=== PATIENT | female | born 1965 | race African-American/Black ===

== ENCOUNTER 2018-06-20 18:15 | Emergency (ER) | payer OTHER ==
[2018-06-20 18:28] VITALS: BP 128/71; PULSE 86; TEMP 98; BMI 27.6
[2018-06-20] MEDS ORDERED: KETOROLAC TROMETHAMINE 60 MG/2 ML VIAL IM ONE (19:14)
--- NOTE | 2018-06-20 19:14 | PDOC ---
History of Present Illness - General Chief Complaint: Injury Stated Complaint: FALL, FINGER SWELLING Time Seen by Provider: 06/20/18 19:01 History Source: Patient Exam Limitations: No Limitations - History of Present Illness Initial Comments: CHIEF COMPLAINT: 53 y/o afebrile female c/o left thumb pain, right knee pain and low back pain after fall at work. HISTORY OF PRESENT ILLNESS: The patient states she fell over something at work , landing mostly on her left hand and right knee. She is able to walk. She denies head trauma, LOC, neck pain, n/v/d, CP, SOB, abd pain, numbness/tingling in hands/feet. Vital signs on arrival are within normal limits. REVIEW OF SYSTEMS: GENERAL/CONSTITUTIONAL: No fever/chills. No weakness. No weight change. MUSCULOSKELETAL: +left thumb swelling and pain. +low back pain. +right knee pain. No neck pain. SKIN: No rash or easy bruising. NEUROLOGIC: No headache, vertigo, loss of consciousness, or loss of sensation. PHYSICAL EXAM: VITAL_SIGNS: within normal limits GENERAL_APPEARANCE: alert, cooperative, mild obvious discomfort with ambulation. Patient is ambulatory but with slight limp. MENTAL_STATUS: speech clear, oriented X 3, responds appropriately to questions. NEURO: motor intact and sensory intact in injured extremity. BACK: No midline lumbar spine TTP or step offs. Reproducible pain with palpation of b/l lumbar paravertebral muscles, worse on left side. EXTREMITIES: Swelling and ecchymosis to left thumb without obvious deformity. Minimal swelling to right knee. Full flexion and extension of right knee. SKIN: warm, dry, good color. Past History - Past Medical History Allergies/Adverse Reactions: Allergies Allergy/AdvReac Type Severity Reaction Status Date / Time No Known Allergies Allergy Verified 06/20/18 18:24 Home Medications: Ambulatory Orders Albuterol Sulfate Inhaler - [Ventolin HFA Inhaler -] 1 - 2 inh PO Q4H #1 inhaler 05/25/18 Darunavir Ethanolate [Prezista -] 800 mg PO DAILY #30 tablet 05/25/18 Dolutegravir Sodium [Tivicay] 1 tab PO DAILY #30 tablet 05/25/18 Fluticasone/Salmeterol [Advair 250-50 Diskus] 1 puff PO BID #1 blst.w.dev Multivit-Min/Iron Fum/Folic AC [Pvaar-Aehnfad-Hsfomdgr Tablet] 1 each PO DAILY # 30 tablet 05/25/18 Ritonavir [Norvir -] 1 tab PO DAILY #30 tab 05/25/18 Zidovudine [Retrovir -] 1 tab PO BID #60 tablet 05/25/18 Albuterol 0.083% Nebulizer Carmencita [Ventolin 0.083% Nebulizer Soln -] 1 amp NEB PRN #30 amp 06/19/18 Ibuprofen 600 mg PO Q6H #20 tablet 06/20/18 Anemia: No Asthma: Yes Cancer: No Cardiac Disorders: No CVA: No COPD: No CHF: No Dementia: No Diabetes: No GI Disorders: No Disorders: No HTN: No Hypercholesterolemia: No Liver Disease: No Seizures: No Thyroid Disease: No - Surgical History Abdominal Surgery: No Appendectomy: No Cardiac Surgery: No Cholecystectomy: No Lung Surgery: No Neurologic Surgery: No Orthopedic Surgery: No - Immunization History Immunization Up to Date: Yes (unknown) - Suicide/Smoking/Psychosocial Hx Smoking History: Current every day smoker Have you smoked in the past 12 months: Yes Number of Cigarettes Smoked Daily: 15 If you are a former smoker, when did you quit?: 1 week smoke free Cigars Per Day: 0 Information on smoking cessation initiated: No Hx Alcohol Use: Yes Drug/Substance Use Hx: Yes Substance Use Type: Alcohol, Cocaine Hx Substance Use Treatment: Yes (completed 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 Plan is as follows: 1. left hand xray 2. Right knee xray 3. IM toradol Left hand xray IMPRESSION (wet read): No acute pathology. Right knee xray IMPRESSION (wet read): No acute pathology. Will put SARY bandage on patient's knee and thumb. Suggested rice instructions and Ibuprofen every 6 hours. Instructed her to f/u with Dr. Demarco within 1 week if no improvement. The patient verbalizes understanding of all instructions, has no further questions and is awaiting discharge. *DC/Admit/Observation/Transfer Diagnosis at time of Disposition: Left thumb sprain Qualifiers: Encounter type: initial encounter Sprain of finger site: unspecified site Qualified Code(s): S63.602A - Unspecified sprain of left thumb, initial encounter Knee pain, right Qualifiers: Chronicity: acute Qualified Code(s): M25.561 - Pain in right knee Low back pain Qualifiers: Chronicity: acute Back pain laterality: bilateral Sciatica presence: with sciatica Sciatica laterality: sciatica of right side Qualified Code(s): M54.41 - Lumbago with sciatica, right side - Discharge Dispostion Disposition: HOME Condition at time of disposition: Good - Referrals Referrals: Nancy Renee NP [Primary Care Provider] - Umer Demarco MD [Staff Physician] - - Patient Instructions Printed Discharge Instructions: How To Perform RICE (Rest, Ice, Compress, Elevate), DI for Ulnar Collateral Ligament Sprain of Thumb, DI for Knee Pain, DI for Low Back Pain Additional Instructions: Discharge INstructions: -Your xrays were normal -Please use SARY bandages for comfort -Alternate ice and heat to affected areas. -Take 600mg of ibuprofen with food every 6 hours for pain/swelling -Follow up with Dr. Demarco in 1 week if no improvement - Post Discharge Activity Forms/Work/School Notes: Back to Work
[2018-06-20] MEDS ORDERED: KETOROLAC TROMETHAMINE 60 MG/2 ML VIAL ONE (19:21)
== END 2018-06-20 20:29 | disposition home or self-care (01) ==
LOC: JERFT 18:15
PROC: 3E0233Z Introduction of Anti-inflammatory into Muscle, Percutaneous Approach (ICD-10-PCS; principal; 2018-06-20)
DX: S63.602A Unspecified sprain of left thumb, initial encounter (principal); M54.41 Lumbago with sciatica, right side; M25.561 Pain in right knee; W19.XXXA Unspecified fall, initial encounter; Y93.89 Activity, other specified; Y92.89 Other specified places as the place of occurrence of the external cause; Y99.0 Civilian activity done for income or pay
CPT/HCPCS: 73110-TC-LR-FY; 73130-TC-LR-FY; 73560-TC-RT-FY; 96372; 99281-25

== ENCOUNTER 2021-04-27 11:35 | Emergency (ER) | payer OTHER ==
[2021-04-27 11:49] VITALS: TEMP 98.8; BMI 26.0
[2021-04-27] MEDS ORDERED: ALBUTEROL SO4 2.5/IPRATROPIUM 0.5 INH SOL 3 ML VIAL.NEB. NEB ONE ×2 (12:01→12:02)
[2021-04-27] MEDS ORDERED: predniSONE 20 MG TABLET (UD) PO ONE (12:44)
[2021-04-27] MEDS ORDERED: predniSONE 20 MG TABLET (UD) ONE (12:48)
[2021-04-27 13:02] VITALS: BP 110/70; PULSE 77
== END 2021-04-27 13:34 | disposition home or self-care (01) ==
LOC: FER 11:35
PROC: 3E0F7GC Introduction of Other Therapeutic Substance into Respiratory Tract, Via Natural or Artificial Opening (ICD-10-PCS; principal; 2021-04-27)
DX: J45.21 Mild intermittent asthma with (acute) exacerbation (principal)
CPT/HCPCS: 71045-TC-FY; 99285-25

== ENCOUNTER 2021-09-02 17:18 | Observation (INO) | payer OTHER ==
[2021-09-02] MEDS ORDERED: ALBUTEROL SO4 2.5/IPRATROPIUM 0.5 INH SOL 3 ML VIAL.NEB. NEB ONE (17:49)
[2021-09-02] MEDS: ALBUTEROL SO4 2.5/IPRATROPIUM 0.5 INH SOL 3 ML VIAL.NEB. NEB SCH ×4 (18:46→19:07)
[2021-09-02] MEDS ORDERED: methylPREDNISolone NA SUCC 125 MG/2 ML VIAL IVPUSH ONE (18:54)
[2021-09-02 18:55] LABS: VENOUS O2 SATURATION 75.4 % (70-80); VENOUS PCO2 46.1 mmHg (38-52); VENOUS PH 7.35 (7.310-7.410)
[2021-09-02 19:07] LABS: BASO % 0.9 % (0-2.0); HEMOGLOBIN 12.6 GM/dL (10.7-15.3); LYMPH % 22.9 % (8-40); MCH 23.6 pg (25.7-33.7); MCHC 32.2 g/dl (32.0-36.0); MEAN CELL VOLUME 73.2 fl (80-96); MEAN PLT VOLUME 10.5 fl (7.5-11.1); MONO % 11.1 % (3.8-10.2); NEUT % 55.1 % (42.8-82.8); PLATELET COUNT 188 10^3/uL (134-434); RBC 5.33 M/mm3 (3.60-5.2); RDW 17.8 % (11.6-15.6)
[2021-09-02] MEDS ORDERED: methylPREDNISolone NA SUCC 125 MG/2 ML VIAL ONE (19:08)
[2021-09-02 19:12] LABS: INR 1.03 (0.83-1.09); PROTHROMBIN TIME (PATIENT) 11.5 SEC (9.7-13.0)
[2021-09-02 19:14] LABS: ACTIVATED PTT 29.9 SECONDS (25.2-36.5)
[2021-09-02 19:15] LABS: CHLORIDE 109 mmol/L (98-107); SODIUM 138 mmol/L (136-145)
[2021-09-02 19:17] LABS: CALCIUM 8.3 mg/dL (8.5-10.1)
[2021-09-02 19:18] LABS: ALBUMIN 3.3 g/dl (3.4-5.0); ANION GAP 2 MMOL/L (8-16); BLOOD UREA NITROGEN 8.8 mg/dL (7-18); CO2 27 mmol/L (21-32); GLUCOSE,RANDOM 147 mg/dL (74-106); MAGNESIUM 2.4 mg/dL (1.8-2.4)
[2021-09-02 19:21] LABS: CREATININE 0.9 mg/dL (0.55-1.3); SGOT/AST 42 U/L (15-37); SGPT/ALT 20 U/L (13-61)
[2021-09-02 19:22] LABS: BILIRUBIN,TOTAL 0.4 mg/dL (0.2-1)
[2021-09-02 19:23] LABS: TOT PROT 7.3 g/dl (6.4-8.2)
[2021-09-02 19:24] LABS: ALK PHOS 104 U/L (45-117)
[2021-09-02] MEDS ORDERED: MAGNESIUM SULF 50% (8.12 MEQ/2 ML-1 GM VIAL) IVPB ONE (22:14)
[2021-09-02] MEDS ORDERED: ALBUTEROL SO4 0.083% IH SOL 2.5 MG/3 ML VIAL.NEB. NEB SCH (22:15)
[2021-09-02] MEDS ORDERED: ACETAMINOPHEN 500 MG TABLET (FP) PO ONE (22:22)
[2021-09-02] MEDS ORDERED: ACETAMINOPHEN 325 MG TABLET (FP) ONE (22:22)
[2021-09-02] MEDS ORDERED: MAGNESIUM SULFATE IN WATER 2 GM/50 ML IVPB IVPB ONE (22:23)
[2021-09-02 22:42] LABS: ALBUMIN 3.3 g/dl (3.4-5.0); BLOOD UREA NITROGEN 8.6 mg/dL (7-18); CALCIUM 8.4 mg/dL (8.5-10.1); MAGNESIUM 2.1 mg/dL (1.8-2.4)
[2021-09-02 22:45] LABS: CREATININE 0.9 mg/dL (0.55-1.3)
[2021-09-02 22:47] LABS: TOT PROT 7.2 g/dl (6.4-8.2)
[2021-09-02 22:49] LABS: BILIRUBIN,TOTAL 0.6 mg/dL (0.2-1)
[2021-09-02] MEDS ORDERED: ALBUTEROL SO4 0.083% IH SOL 2.5 MG/3 ML VIAL.NEB. NEB ONE (23:39)
[2021-09-03] MEDS ORDERED: ALBUTEROL SO4 0.083% IH SOL 2.5 MG/3 ML VIAL.NEB. NEB PRN (03:24)
[2021-09-03] MEDS ORDERED: ALBUTEROL SO4 0.083% IH SOL 2.5 MG/3 ML VIAL.NEB. NEB ONE (05:58)
[2021-09-03] MEDS ORDERED: ALBUTEROL SO4 2.5/IPRATROPIUM 0.5 INH SOL 3 ML VIAL.NEB. NEB ONE ×2 (08:24→14:52)
[2021-09-03] MEDS: ALBUTEROL SO4 2.5/IPRATROPIUM 0.5 INH SOL 3 ML VIAL.NEB. NEB SCH ×5 (09:00→20:00)
[2021-09-03] MEDS ORDERED: DOXYCYCLINE HYCLATE 100 MG CAPSULE PO ONE (09:04)
[2021-09-03] MEDS ORDERED: methylPREDNISolone NA SUCC 40 MG/1 ML VIAL ONE ×2 (09:05→17:41)
[2021-09-03] MEDS ORDERED: ENOXAPARIN NA (PORCINE) 40 MG/0.4 ML DISP.SYRIN SQ ONE (09:05)
[2021-09-03 09:36] LABS: BASO % 0.2 % (0-2.0); HEMOGLOBIN 12.6 GM/dL (10.7-15.3); LYMPH % 12.4 % (8-40); MCH 24.1 pg (25.7-33.7); MCHC 32.3 g/dl (32.0-36.0); MEAN CELL VOLUME 74.6 fl (80-96); MEAN PLT VOLUME 11.2 fl (7.5-11.1); MONO % 4.3 % (3.8-10.2); NEUT % 83.1 % (42.8-82.8); PLATELET COUNT 221 10^3/uL (134-434); RBC 5.23 M/mm3 (3.60-5.2); RDW 17.9 % (11.6-15.6)
[2021-09-03] MEDS: ENOXAPARIN NA (PORCINE) 40 MG/0.4 ML DISP.SYRIN SQ SCH (09:41)
[2021-09-03] MEDS: ZIDOVUDINE 300 MG PO SCH ×2 (09:41→22:41)
[2021-09-03] MEDS: methylPREDNISolone NA SUCC 40 MG/1 ML VIAL IVPUSH SCH ×2 (09:41→21:15)
[2021-09-03] MEDS: RITONAVIR 100 MG TABLET PO SCH (09:41)
[2021-09-03] MEDS: DARUNAVIR ETHANOLATE 800 MG TAB PO SCH (09:41)
[2021-09-03] MEDS: NICOTINE 14 MG/24 HOURS TOPICAL PATCH TD SCH (09:41)
[2021-09-03] MEDS: DOLUTEGRAVIR SODIUM 50 MG TABLET (NON-FORMULARY) PO SCH (09:42)
[2021-09-03] MEDS: DOXYCYCLINE HYCLATE 100 MG CAPSULE PO SCH (09:42)
[2021-09-03 09:46] LABS: BLOOD UREA NITROGEN 10.9 mg/dL (7-18); CALCIUM 9.1 mg/dL (8.5-10.1)
[2021-09-03 09:49] LABS: CREATININE 0.9 mg/dL (0.55-1.3)
[2021-09-03] MEDS: BUDESONIDE/FORMETEROL FUMARATE 160/4.5 mcg INHALER IH SCH ×2 (12:00→21:53)
[2021-09-03 15:02] LABS: HIV INTERPRETATION PRESUMPTIVE POSITIVE (NEGATIVE)
[2021-09-03] MEDS: ACETAMINOPHEN 325 MG TABLET (FP) PO PRN (16:35)
[2021-09-03 22:25] VITALS: BMI 26.8
[2021-09-04] MEDS: methylPREDNISolone NA SUCC 40 MG/1 ML VIAL IVPUSH SCH ×3 (01:32→17:54)
[2021-09-04] MEDS: ALBUTEROL SO4 2.5/IPRATROPIUM 0.5 INH SOL 3 ML VIAL.NEB. NEB SCH ×4 (07:30→20:48)
[2021-09-04 10:10] LABS: ALBUMIN 3.6 g/dl (3.4-5.0); BILIRUBIN,TOTAL 0.4 mg/dL (0.2-1); BLOOD UREA NITROGEN 14.1 mg/dL (7-18); CALCIUM 9.2 mg/dL (8.5-10.1); MAGNESIUM 2.4 mg/dL (1.8-2.4)
[2021-09-04 10:11] LABS: HEMATOCRIT 37.6 % (32.4-45.2); HEMOGLOBIN 12.2 GM/dL (10.7-15.3); MCH 23.9 pg (25.7-33.7); MCHC 32.5 g/dl (32.0-36.0); MEAN CELL VOLUME 73.5 fl (80-96); MEAN PLT VOLUME 10.8 fl (7.5-11.1); PLATELET COUNT 222 10^3/uL (134-434); RBC 5.11 M/mm3 (3.60-5.2); RDW 18.3 % (11.6-15.6); TOT PROT 7.5 g/dl (6.4-8.2); WHITE BLOOD COUNT 22.6 K/mm3 (4.0-10.0)
[2021-09-04] MEDS: NICOTINE 14 MG/24 HOURS TOPICAL PATCH TD SCH (11:12)
[2021-09-04] MEDS: BUDESONIDE/FORMETEROL FUMARATE 160/4.5 mcg INHALER IH SCH ×2 (11:12→21:38)
[2021-09-04] MEDS: ENOXAPARIN NA (PORCINE) 40 MG/0.4 ML DISP.SYRIN SQ SCH (11:12)
[2021-09-04] MEDS: DOXYCYCLINE HYCLATE 100 MG CAPSULE PO SCH (11:12)
[2021-09-04] MEDS: DOLUTEGRAVIR SODIUM 50 MG TABLET (NON-FORMULARY) PO SCH (11:12)
[2021-09-04] MEDS: ZIDOVUDINE 300 MG PO SCH ×2 (11:13→21:38)
[2021-09-04] MEDS: RITONAVIR 100 MG TABLET PO SCH (11:13)
[2021-09-04] MEDS: DARUNAVIR ETHANOLATE 800 MG TAB PO SCH (11:13)
[2021-09-04] MEDS ORDERED: PT OWN MED DRAWER 7, Y5N ONE (21:11)
[2021-09-04] MEDS ORDERED: BENZOCAINE/MENTH/CETYLPYRD CL 1 EACH LOZENGE MM PRN (22:00)
[2021-09-05] MEDS: methylPREDNISolone NA SUCC 40 MG/1 ML VIAL IVPUSH SCH ×3 (01:02→17:23)
[2021-09-05] MEDS: ALBUTEROL SO4 2.5/IPRATROPIUM 0.5 INH SOL 3 ML VIAL.NEB. NEB SCH ×4 (07:35→20:18)
[2021-09-05 08:34] LABS: HEMATOCRIT 36.8 % (32.4-45.2); HEMOGLOBIN 11.8 GM/dL (10.7-15.3); MCH 23.4 pg (25.7-33.7); MCHC 32.2 g/dl (32.0-36.0); MEAN CELL VOLUME 72.8 fl (80-96); MEAN PLT VOLUME 10.3 fl (7.5-11.1); PLATELET COUNT 215 10^3/uL (134-434); RBC 5.05 M/mm3 (3.60-5.2); RDW 18.3 % (11.6-15.6); WHITE BLOOD COUNT 17.7 K/mm3 (4.0-10.0)
[2021-09-05] MEDS ORDERED: PT OWN MED DRAWER 7, Y5N ONE ×3 (08:55→22:14)
[2021-09-05] MEDS: ENOXAPARIN NA (PORCINE) 40 MG/0.4 ML DISP.SYRIN SQ SCH (09:03)
[2021-09-05] MEDS: NICOTINE 14 MG/24 HOURS TOPICAL PATCH TD SCH (09:03)
[2021-09-05] MEDS: DOXYCYCLINE HYCLATE 100 MG CAPSULE PO SCH (09:04)
[2021-09-05] MEDS: ZIDOVUDINE 300 MG PO SCH ×2 (09:05→22:30)
[2021-09-05] MEDS: DARUNAVIR ETHANOLATE 800 MG TAB PO SCH (09:05)
[2021-09-05] MEDS: DOLUTEGRAVIR SODIUM 50 MG TABLET (NON-FORMULARY) PO SCH (09:05)
[2021-09-05 09:06] LABS: ALBUMIN 3.3 g/dl (3.4-5.0); CREATININE 0.8 mg/dL (0.55-1.3)
[2021-09-05] MEDS: RITONAVIR 100 MG TABLET PO SCH (09:06)
[2021-09-05 09:07] LABS: BLOOD UREA NITROGEN 19.5 mg/dL (7-18)
[2021-09-05 09:08] LABS: BILIRUBIN,TOTAL 0.4 mg/dL (0.2-1); CALCIUM 8.9 mg/dL (8.5-10.1); TOT PROT 6.9 g/dl (6.4-8.2)
[2021-09-05 09:09] LABS: MAGNESIUM 2.6 mg/dL (1.8-2.4)
[2021-09-05 09:10] LABS: PHOSPHOROUS 3.3 mg/dL (2.5-4.9)
[2021-09-05] MEDS: BUDESONIDE/FORMETEROL FUMARATE 160/4.5 mcg INHALER IH SCH ×2 (09:13→22:30)
[2021-09-05] MEDS: ACETAMINOPHEN 325 MG TABLET (FP) PO PRN (16:55)
[2021-09-06] MEDS: methylPREDNISolone NA SUCC 40 MG/1 ML VIAL IVPUSH SCH ×2 (02:13→09:06)
[2021-09-06] MEDS: ALBUTEROL SO4 2.5/IPRATROPIUM 0.5 INH SOL 3 ML VIAL.NEB. NEB SCH ×2 (07:30→11:36)
[2021-09-06 08:57] LABS: HEMATOCRIT 38.9 % (32.4-45.2); HEMOGLOBIN 12.4 GM/dL (10.7-15.3); MCH 23.5 pg (25.7-33.7); MCHC 31.9 g/dl (32.0-36.0); MEAN CELL VOLUME 73.7 fl (80-96); MEAN PLT VOLUME 10.4 fl (7.5-11.1); PLATELET COUNT 222 10^3/uL (134-434); RBC 5.28 M/mm3 (3.60-5.2); RDW 18.5 % (11.6-15.6); WHITE BLOOD COUNT 19.6 K/mm3 (4.0-10.0)
[2021-09-06] MEDS ORDERED: PT OWN MED DRAWER 7, Y5N ONE ×2 (09:04→16:38)
[2021-09-06] MEDS: NICOTINE 14 MG/24 HOURS TOPICAL PATCH TD SCH (09:07)
[2021-09-06] MEDS: DOXYCYCLINE HYCLATE 100 MG CAPSULE PO SCH (09:08)
[2021-09-06] MEDS: DARUNAVIR ETHANOLATE 800 MG TAB PO SCH (09:08)
[2021-09-06] MEDS: DOLUTEGRAVIR SODIUM 50 MG TABLET (NON-FORMULARY) PO SCH (09:09)
[2021-09-06] MEDS: ZIDOVUDINE 300 MG PO SCH (09:09)
[2021-09-06] MEDS: RITONAVIR 100 MG TABLET PO SCH (09:09)
[2021-09-06] MEDS: ENOXAPARIN NA (PORCINE) 40 MG/0.4 ML DISP.SYRIN SQ SCH (09:13)
[2021-09-06] MEDS: BUDESONIDE/FORMETEROL FUMARATE 160/4.5 mcg INHALER IH SCH (09:16)
[2021-09-06 09:19] LABS: ALBUMIN 3.2 g/dl (3.4-5.0); CALCIUM 8.7 mg/dL (8.5-10.1)
[2021-09-06 09:20] LABS: BLOOD UREA NITROGEN 15.5 mg/dL (7-18); MAGNESIUM 2.5 mg/dL (1.8-2.4)
[2021-09-06 09:22] LABS: PHOSPHOROUS 2.7 mg/dL (2.5-4.9)
[2021-09-06 09:24] LABS: BILIRUBIN,TOTAL 0.5 mg/dL (0.2-1); TOT PROT 6.8 g/dl (6.4-8.2)
[2021-09-06 10:07] LABS: HEMATOCRIT 35.3 % (34.0-46.6); HEMOGLOBIN 11.6 g/dL (11.1-15.9); LYMPHS (ABSOLUTE) 1.6 x10E3/uL (0.7-3.1); MCH 23.9 pg (26.6-33.0); MCHC 32.9 g/dL (31.5-35.7); PLATELET COUNT 246 x10E3/uL (150-450); RBC 4.85 x10E6/uL (3.77-5.28); RDW 18.4 % (11.7-15.4); WHITE BLOOD COUNT 19.7 x10E3/uL (3.4-10.8)
[2021-09-06 11:52] VITALS: BP 120/60; PULSE 80; TEMP 98
== END 2021-09-06 16:00 | disposition home or self-care (01) ==
LOC: JER 17:18 → JERBED 09-03 01:33 → UNDOADMOB 09-03 01:33 → INTOOBSV 09-03 01:33 → JERBED 09-03 14:23 → J6S 09-03 20:53
PROVIDERS: ADMIT Internal Medicine; ATTEND Internal Medicine
PROC: 3E0F7GC Introduction of Other Therapeutic Substance into Respiratory Tract, Via Natural or Artificial Opening (ICD-10-PCS; principal; 2021-09-03)
PROC: 3E033GC Introduction of Other Therapeutic Substance into Peripheral Vein, Percutaneous Approach (ICD-10-PCS; 2021-09-03)
DX: J44.1 Chronic obstructive pulmonary disease with (acute) exacerbation (principal); B20 Human immunodeficiency virus [HIV] disease; I45.81 Long QT syndrome; Z29.9 Encounter for prophylactic measures, unspecified; F17.210 Nicotine dependence, cigarettes, uncomplicated; R05.9 Cough, unspecified
CPT/HCPCS: 36415; 71045-TC-FY; 71250-TC; 80048; 80053; 82550; 82553; 82803; 83735; 84100; 84484; 85025; 85027; 85610; 85730; 86160; 86360; 86606; 87389; 87804; 87807; 93005; 93010; 94150; 94640; 94761; 96374; 96375; 96376; 99285-25; C9803; G0378; U0003; U0005

== ENCOUNTER 2024-02-07 19:27 | Inpatient (IN) | payer OTHER ==
[2024-02-07] MEDS ORDERED: methylPREDNISolone NA SUCC 125 MG/2 ML VIAL ONE (20:34)
[2024-02-07] MEDS ORDERED: ALBUTEROL SO4 2.5/IPRATROPIUM 0.5 INH SOL 3 ML VIAL.NEB. NEB ONE (20:34)
[2024-02-07] MEDS: methylPREDNISolone NA SUCC 125 MG/2 ML VIAL IVPB ONE (20:54)
[2024-02-07] MEDS: ALBUTEROL SO4 2.5/IPRATROPIUM 0.5 INH SOL 3 ML VIAL.NEB. NEB ONE (20:54)
[2024-02-07 21:06] LABS: BASO % 0.8 % (0-2.0); EOS % 10.5 % (0-4.5); HEMATOCRIT 37.6 % (32.4-45.2); HEMOGLOBIN 12.3 GM/dL (10.7-15.3); LYMPH % 30.8 % (8-40); MCH 24.8 pg (25.7-33.7); MCHC 32.7 g/dl (32.0-36.0); MEAN CELL VOLUME 75.8 fl (80-96); MEAN PLT VOLUME 9.6 fl (7.5-11.1); MONO % 10.4 % (3.8-10.2); NEUT % 47.5 % (42.8-82.8); PLATELET COUNT 231 10^3/uL (134-434); RBC 4.96 M/mm3 (3.60-5.2); RDW 18.1 % (11.6-15.6); WHITE BLOOD COUNT 11.8 K/mm3 (4.0-10.0)
[2024-02-07 21:07] LABS: VENOUS BASE EXCESS 0.5 mmol/L (-2-2); VENOUS PCO2 55.1 mmHg (38-52); VENOUS PH 7.317 (7.310-7.410)
[2024-02-07 21:14] LABS: PROTHROMBIN TIME (PATIENT) 11.5 SEC (9.7-13.0)
[2024-02-07 21:17] LABS: ACTIVATED PTT 31.6 SECONDS (25.2-36.5)
[2024-02-07 21:21] LABS: POTASSIUM 4.1 mmol/L (3.5-5.1)
[2024-02-07 21:23] LABS: CALCIUM 8.9 mg/dL (8.5-10.1)
[2024-02-07 21:24] LABS: ALBUMIN 3.7 g/dl (3.4-5.0); BLOOD UREA NITROGEN 13.3 mg/dL (7-18)
[2024-02-07 21:27] LABS: CREATININE 0.7 mg/dL (0.55-1.3); PHOSPHOROUS 3.6 mg/dL (2.5-4.9)
[2024-02-07 21:28] LABS: BILIRUBIN,TOTAL 0.4 mg/dL (0.2-1); TOT PROT 7.2 g/dl (6.4-8.2)
[2024-02-07] MEDS ORDERED: MAGNESIUM SULFATE IN WATER 2 GM/50 ML IVPB IVPB ONE (21:56)
[2024-02-07] MEDS: MAGNESIUM SULF 50% (8.12 MEQ/2 ML-1 GM VIAL) IVPB ONE (22:03)
[2024-02-07 22:15] LABS: POTASSIUM 3.5 mmol/L (3.5-5.1)
[2024-02-07 22:16] LABS: CALCIUM 8.6 mg/dL (8.5-10.1)
[2024-02-07 22:17] LABS: BLOOD UREA NITROGEN 12.3 mg/dL (7-18)
[2024-02-07 22:20] LABS: CREATININE 0.7 mg/dL (0.55-1.3)
[2024-02-07] MEDS ORDERED: ALBUTEROL SO4 0.5 % INH SOLN 2.5 MG/0.5 ML VIAL.NEB. NEB ONE (23:06)
[2024-02-07] MEDS ORDERED: CEFTRIAXONE 1 GM/50 ML BAG ONE (23:07)
[2024-02-07] MEDS: CEFTRIAXONE 1 GM in DEXTROSE 5%-WATER - 50 ML IVPB ONE (23:17)
[2024-02-07] MEDS: ALBUTEROL SO4 0.5 % INH SOLN 2.5 MG/0.5 ML VIAL.NEB. NEB ONE (23:17)
[2024-02-07] MEDS ORDERED: AZITHROMYCIN IVPB 500 MG/250 ML BAG IVPB ONE (23:34)
[2024-02-07] MEDS: AZITHROMYCIN IVPB 500 MG in DEXTROSE 5%-WATER - 250 ML IVPB ONE (23:42)
[2024-02-08] MEDS ORDERED: ALBUTEROL SO4 0.5 % INH SOLN 2.5 MG/0.5 ML VIAL.NEB. NEB ONE (00:34)
[2024-02-08] MEDS: ALBUTEROL SO4 0.5 % INH SOLN 2.5 MG/0.5 ML VIAL.NEB. NEB ONE (00:38)
[2024-02-08] MEDS: ALBUTEROL SO4 2.5/IPRATROPIUM 0.5 INH SOL 3 ML VIAL.NEB. NEB SCH (02:00)
[2024-02-08] MEDS ORDERED: ALBUTEROL SO4 HFA INHALER IH PRN (03:01)
[2024-02-08 03:13] VITALS: RESP 18; BMI 24.3
[2024-02-08] MEDS ORDERED: guaiFENesin 600 MG TABLET.ER (FP) PO ONE (06:36)
[2024-02-08] MEDS: guaiFENesin 600 MG TABLET.ER (FP) PO ONE (07:43)
[2024-02-08 08:23] LABS: POTASSIUM 4.1 mmol/L (3.5-5.1)
[2024-02-08 08:28] LABS: CALCIUM 9.2 mg/dL (8.5-10.1)
[2024-02-08 08:29] LABS: ALBUMIN 3.6 g/dl (3.4-5.0); BLOOD UREA NITROGEN 14.9 mg/dL (7-18); MAGNESIUM 2.3 mg/dL (1.8-2.4)
[2024-02-08 08:32] LABS: CREATININE 0.8 mg/dL (0.55-1.3); PHOSPHOROUS 2.2 mg/dL (2.5-4.9)
[2024-02-08 08:33] LABS: HEMATOCRIT 36.9 % (32.4-45.2); HEMOGLOBIN 11.7 GM/dL (10.7-15.3); MCH 24.3 pg (25.7-33.7); MCHC 31.7 g/dl (32.0-36.0); MEAN CELL VOLUME 76.7 fl (80-96); MEAN PLT VOLUME 10.1 fl (7.5-11.1); PLATELET COUNT 220 10^3/uL (134-434); RBC 4.81 M/mm3 (3.60-5.2); RDW 17.8 % (11.6-15.6); WHITE BLOOD COUNT 11.2 K/mm3 (4.0-10.0)
[2024-02-08 08:34] LABS: BILIRUBIN,TOTAL 0.4 mg/dL (0.2-1); TOT PROT 7.1 g/dl (6.4-8.2)
[2024-02-08] MEDS: guaiFENesin/D-METHORPHAN TAB.ER.12H PO SCH (09:13)
[2024-02-08] MEDS: BUDESONIDE/FORMETEROL FUMARATE 160/4.5 mcg INHALER IH SCH (09:13)
[2024-02-08] MEDS: DOLUTEGRAVIR SODIUM 50 MG TABLET (NON-FORMULARY) PO SCH (09:13)
[2024-02-08] MEDS: RITONAVIR 100 MG TABLET PO SCH (09:13)
[2024-02-08] MEDS: DARUNAVIR ETHANOLATE 800 MG TAB PO SCH (09:13)
[2024-02-08] MEDS: ZIDOVUDINE 100 MG CAPSULE PO SCH (09:13)
[2024-02-08] MEDS: LORATADINE 10 MG TABLET PO SCH (09:17)
[2024-02-08] MEDS: ENOXAPARIN NA (PORCINE) 40 MG/0.4 ML DISP.SYRIN SQ SCH (09:17)
[2024-02-08] MEDS: AZITHROMYCIN IVPB 500 MG/250 ML BAG IVPB SCH (09:18)
[2024-02-08] MEDS: methylPREDNISolone NA SUCC 40 MG/1 ML VIAL IVPUSH SCH (09:18)
[2024-02-08] MEDS: ZIDOVUDINE 300 MG PO SCH (09:21)
[2024-02-08] MEDS: TIOTROPIUM BROMIDE 2.5 MCG (SPIRIVA) RESPIMAT INHALER IH SCH (10:06)
[2024-02-08] MEDS: ACETAMINOPHEN 325 MG TABLET (FP) PO PRN (11:36)
[2024-02-08 14:35] VITALS: BP 148/76; PULSE 90; TEMP 99
== END 2024-02-08 18:05 | disposition home or self-care (01) | DRG 202 ==
LOC: JER 19:27 → JERBED 23:00 → J6S 02-08 02:05 → OBSVTOIN 02-08 03:02
PROVIDERS: ADMIT Internal Medicine; ATTEND Internal Medicine
DX: J45.901 Unspecified asthma with (acute) exacerbation (principal); J44.1 Chronic obstructive pulmonary disease with (acute) exacerbation; Z21 Asymptomatic human immunodeficiency virus [HIV] infection status; F17.200 Nicotine dependence, unspecified, uncomplicated
CPT/HCPCS: 0241U-QW; 36415; 71045-TC-FY; 71250-TC; 80048; 80053; 82803; 83605; 83735; 84100; 84484; 85025; 85027; 85610; 85730; 86140; 87040; 93005; 93010; 94640; 99285-25; G0378

== ENCOUNTER 2025-03-08 17:02 | Emergency (ER) | payer OTHER ==
[2025-03-08 17:17] VITALS: BP 109/76; PULSE 98; RESP 22; TEMP 98.1; BMI 23.0
[2025-03-08] MEDS: predniSONE 20 MG TABLET (UD) PO ONE (18:19)
[2025-03-08 18:20] LABS: ABSOLUTE IMMATURE GRANULOCYTES 0.06 x10^3/uL (0.0-0.031); BASOPHILS # 0.06 x10^3/uL (0.01-0.08); EOSINOPHIL % 0.2 % (0.7-5.8); EOSINOPHILS # 0.03 x10^3/uL (0.04-0.36); HEMATOCRIT 42.3 % (34.1-44.9); HEMOGLOBIN 13.4 g/dL (11.2-15.7); MCHC 31.7 g/dl (32.2-35.5); MEAN CELL VOLUME 72.9 fl (79.4-94.8); MEAN PLT VOLUME 11.7 fl (9.4-12.3); MONOCYTE # 1.37 x10^3/uL (0.24-0.86); MONOCYTE % 9.7 % (4.7-12.5); PLATELET COUNT 217 x10^3/uL (182-369); RDW 16.2 % (12.4-16.4)
[2025-03-08] MEDS ORDERED: ALBUTEROL SO4 0.083% IH SOL 2.5 MG/3 ML VIAL.NEB. NEB ONE (18:20)
[2025-03-08] MEDS: ALBUTEROL SO4 0.083% IH SOL 2.5 MG/3 ML VIAL.NEB. NEB SCH (18:20)
[2025-03-08] MEDS ORDERED: predniSONE 20 MG TABLET (UD) ONE (18:20)
[2025-03-08 18:38] LABS: POTASSIUM 4.1 mmol/L (3.5-5.1)
[2025-03-08 18:41] LABS: ALBUMIN 3.9 g/dl (3.4-5.0); CALCIUM 9.2 mg/dL (8.5-10.1)
[2025-03-08 18:42] LABS: BLOOD UREA NITROGEN 16.9 mg/dL (7-18)
[2025-03-08 18:46] LABS: BILIRUBIN,TOTAL 0.4 mg/dL (0.2-1); TOT PROT 7.7 g/dl (6.4-8.2)
[2025-03-08 18:49] LABS: N-TERMINAL BNP 135.9 pg/ml (5-125)
[2025-03-08] MEDS ORDERED: AZITHROMYCIN 500 MG TABLET ONE (21:20)
[2025-03-08] MEDS: AZITHROMYCIN 250 MG TABLET PO ONE (21:23)
== END 2025-03-08 21:23 | disposition home or self-care (01) ==
LOC: JER 17:02
PROC: 3E0F7GC Introduction of Other Therapeutic Substance into Respiratory Tract, Via Natural or Artificial Opening (ICD-10-PCS; principal; 2025-03-08)
DX: J44.1 Chronic obstructive pulmonary disease with (acute) exacerbation (principal); R05.9 Cough, unspecified; R06.02 Shortness of breath
CPT/HCPCS: 0241U-QW; 36415; 71046-TC-FY; 80053; 83880; 84484; 85025; 93005; 93010; 94640; 99285-25

== ENCOUNTER 2025-04-15 23:48 | Inpatient (IN) | payer OTHER ==
[2025-04-15] MEDS ORDERED: ALBUTEROL SO4 2.5/IPRATROPIUM 0.5 INH SOL 3 ML VIAL.NEB. NEB ONE (23:56)
[2025-04-16] MEDS: ALBUTEROL SO4 2.5/IPRATROPIUM 0.5 INH SOL 3 ML VIAL.NEB. NEB ONE (01:09)
[2025-04-16] MEDS ORDERED: methylPREDNISolone NA SUCC 125 MG/2 ML VIAL ONE (01:13)
[2025-04-16] MEDS: methylPREDNISolone NA SUCC 125 MG/2 ML VIAL IVPUSH ONE (01:37)
[2025-04-16 01:43] LABS: ABSOLUTE IMMATURE GRANULOCYTES 0.05 x10^3/uL (0.0-0.031); BASOPHILS # 0.08 x10^3/uL (0.01-0.08); BG HCT 43.0 % (32.4-45.2); EOSINOPHIL % 5.8 % (0.7-5.8); EOSINOPHILS # 0.62 x10^3/uL (0.04-0.36); MCHC 31.5 g/dl (32.2-35.5); MEAN CELL VOLUME 76.1 fl (79.4-94.8); MEAN PLT VOLUME 12.3 fl (9.4-12.3); MONOCYTE # 1.09 x10^3/uL (0.24-0.86); MONOCYTE % 10.2 % (4.7-12.5); RDW 16.2 % (12.4-16.4); VENOUS BASE EXCESS 0.8 mmol/L (-2-2); VENOUS O2 SATURATION 24.0 % (70-80); VENOUS PCO2 58.4 mmHg (38-52); VENOUS PH 7.306 (7.310-7.410)
[2025-04-16] MEDS ORDERED: AZITHROMYCIN 500 MG TABLET ONE (01:44)
[2025-04-16] MEDS: AZITHROMYCIN 250 MG TABLET PO ONE (01:48)
[2025-04-16 02:02] LABS: CO2 30.0 mmol/L (21-32); GLUCOSE,RANDOM 189.0 mg/dL (74-106)
[2025-04-16 02:05] LABS: CREATININE 0.9 mg/dL (0.55-1.3); SGOT/AST 17.0 U/L (15-37); SGPT/ALT 19.0 U/L (13-61)
[2025-04-16 02:06] LABS: TOT PROT 6.9 g/dl (6.4-8.2)
[2025-04-16 02:08] LABS: ALK PHOS 97.0 U/L (45-117)
[2025-04-16] MEDS: ALBUTEROL SO4 2.5/IPRATROPIUM 0.5 INH SOL 3 ML VIAL.NEB. NEB PRN (05:13)
[2025-04-16] MEDS ORDERED: methylPREDNISolone NA SUCC 40 MG/1 ML VIAL ONE (06:04)
[2025-04-16] MEDS: methylPREDNISolone NA SUCC 40 MG/1 ML VIAL IVPUSH SCH ×2 (06:07→09:14)
[2025-04-16 07:13] LABS: ABSOLUTE IMMATURE GRANULOCYTES 0.03 x10^3/uL (0.0-0.031); BASOPHILS # 0.03 x10^3/uL (0.01-0.08); EOSINOPHIL % 0.8 % (0.7-5.8); EOSINOPHILS # 0.06 x10^3/uL (0.04-0.36); MCHC 31.7 g/dl (32.2-35.5); MEAN CELL VOLUME 76.1 fl (79.4-94.8); MEAN PLT VOLUME 13.2 fl (9.4-12.3); MONOCYTE # 0.22 x10^3/uL (0.24-0.86); MONOCYTE % 2.9 % (4.7-12.5); RDW 16.0 % (12.4-16.4)
[2025-04-16] MEDS: ALBUTEROL SO4 2.5/IPRATROPIUM 0.5 INH SOL 3 ML VIAL.NEB. NEB SCH (07:35)
[2025-04-16] MEDS ORDERED: ALBUTEROL SO4 2.5/IPRATROPIUM 0.5 INH SOL 3 ML VIAL.NEB. NEB SCH (08:00)
[2025-04-16] MEDS: ENOXAPARIN NA (PORCINE) 40 MG/0.4 ML DISP.SYRIN SQ SCH (09:14)
[2025-04-16 10:48] LABS: CO2 25.0 mmol/L (21-32); GLUCOSE,RANDOM 166.0 mg/dL (74-106)
[2025-04-16 10:51] VITALS: BMI 25.2
[2025-04-16 10:51] LABS: CREATININE 0.7 mg/dL (0.55-1.3); SGOT/AST 12.0 U/L (15-37); SGPT/ALT 17.0 U/L (13-61)
[2025-04-16 10:53] LABS: TOT PROT 6.4 g/dl (6.4-8.2)
[2025-04-16 10:54] LABS: ALK PHOS 87.0 U/L (45-117)
[2025-04-16] MEDS: BUDESONIDE/FORMETEROL FUMARATE 160/4.5 mcg INHALER IH SCH (12:28)
[2025-04-16] MEDS: AZITHROMYCIN IVPB 250 MG in DEXTROSE 5%-WATER - 250 ML IVPB SCH (15:29)
[2025-04-16] MEDS: guaiFENesin/D-METHORPHAN HB 10 ML UNIT-DOSE CUPS PO PRN (15:39)
[2025-04-17] MEDS: AZITHROMYCIN 250 MG TABLET PO SCH (09:11)
[2025-04-17 09:34] LABS: MCHC 32.2 g/dl (32.2-35.5); MEAN CELL VOLUME 74.5 fl (79.4-94.8); MEAN PLT VOLUME 12.8 fl (9.4-12.3); RDW 15.9 % (12.4-16.4)
[2025-04-17 10:01] LABS: CO2 26.0 mmol/L (21-32); GLUCOSE,RANDOM 130.0 mg/dL (74-106)
[2025-04-17 10:04] LABS: CREATININE 0.7 mg/dL (0.55-1.3)
[2025-04-17 12:03] LABS: MCHC 32.3 g/dl (32.2-35.5); MEAN CELL VOLUME 74.0 fl (79.4-94.8); RDW 15.9 % (12.4-16.4)
[2025-04-17 18:34] VITALS: RESP 17
[2025-04-17] MEDS: ACETAMINOPHEN 325 MG TABLET (FP) PO PRN (19:55)
[2025-04-18 06:59] VITALS: BP 128/98; PULSE 87; TEMP 97.9
[2025-04-18] MEDS: AZITHROMYCIN 250 MG TABLET PO ONE (09:02)
[2025-04-18] MEDS: predniSONE 20 MG TABLET (UD) PO SCH (09:02)
[2025-04-18 09:40] LABS: MCHC 31.6 g/dl (32.2-35.5); MEAN CELL VOLUME 74.2 fl (79.4-94.8); RDW 15.9 % (12.4-16.4)
== END 2025-04-18 10:36 | disposition home or self-care (01) | DRG 192 ==
LOC: JER 23:48 → JERBED 04-16 03:59 → J6S 04-16 06:43 → OBSVTOIN 04-16 15:31
PROVIDERS: ADMIT Internal Medicine; ATTEND Internal Medicine
DX: J44.1 Chronic obstructive pulmonary disease with (acute) exacerbation (principal); Z21 Asymptomatic human immunodeficiency virus [HIV] infection status; F41.9 Anxiety disorder, unspecified
CPT/HCPCS: 36415; 71046-TC-FY; 80048; 80053; 82803; 83735; 84100; 85025; 85027; 86359; 86360; 87637-QW; 94640; 99285-25; G0378

== ENCOUNTER 2025-05-04 10:20 | Inpatient (IN) | payer OTHER ==
[2025-05-04 10:39] VITALS: BMI 23.7
[2025-05-04] MEDS ORDERED: guaiFENesin 600 MG TABLET.ER (FP) PO PRN (11:11)
[2025-05-04] MEDS ORDERED: LOPERAMIDE HCL 2 MG CAPSULE PO PRN (11:11)
[2025-05-04] MEDS ORDERED: NICOTINE POLACRILEX 2 MG GUM BUC PRN (11:11)
[2025-05-04] MEDS ORDERED: NICOTINE POLACRILEX 2 MG LOZENGE BC PRN (11:11)
[2025-05-04] MEDS ORDERED: NALOXONE (NARCAN) HCL 4 MG/0.1 ML SPRAY NS PRN (11:11)
[2025-05-04] MEDS: ACETAMINOPHEN 325 MG TABLET (FP) PO PRN (22:16)
[2025-05-04] MEDS: MELATONIN 5 MG TABLETS PO SCH (22:17)
[2025-05-04] MEDS: THIAMINE 100 MG TABLET PO SCH (22:17)
[2025-05-05] MEDS: PRENATAL VITAMINS W/ FOLIC ACID TABLET (FP) PO SCH (09:41)
[2025-05-05] MEDS: BENZONATATE 200 MG CAPSULE PO PRN (10:38)
[2025-05-05 10:46] LABS: MCHC 31.1 g/dl (32.2-35.5); MEAN CELL VOLUME 75.1 fl (79.4-94.8); MEAN PLT VOLUME 12.2 fl (9.4-12.3); RDW 15.4 % (12.4-16.4)
[2025-05-05 10:48] LABS: GLUCOSE,RANDOM 90.0 mg/dL (74-106); TOT PROT 5.9 g/dl (6.4-8.2)
[2025-05-05 10:50] LABS: ALK PHOS 78.0 U/L (40-150); CO2 24.0 mmol/L (21-32)
[2025-05-05 10:53] LABS: SGOT/AST 27.0 U/L (5-34); SGPT/ALT 8.0 U/L (0-55)
[2025-05-05 10:54] LABS: CREATININE 0.64 mg/dL (0.55-1.3)
[2025-05-05] MEDS ORDERED: TUBERCULIN PPD 5 TU/0.1ML VIAL ID ONE (17:07)
[2025-05-05] MEDS ORDERED: SUVOREXANT 5 MG TABLET PO PRN (22:00)
[2025-05-06 10:37] LABS: URINE APPEARANCE CLEAR; URINE BILIRUBIN NEGATIVE (NEGATIVE); URINE COLOR YELLOW; URINE GLUCOSE (UA) NEGATIVE (NEGATIVE); URINE KETONE NEGATIVE (NEGATIVE); URINE LEUK ESTERASE NEGATIVE (NEGATIVE); URINE NITRITE NEGATIVE (NEGATIVE); URINE PROTEIN NEGATIVE (NEGATIVE); URINE UROBILINOGEN 0.2 mg/dL (0.2-1.0)
[2025-05-08] MEDS: SUVOREXANT 5 MG TABLET PO SCH (00:03)
[2025-05-09] MEDS: POLYETHYLENE GLYCOL (HEALTHYLAX) 3350 17 GM PACKET PO PRN (19:00)
[2025-05-11] MEDS: MAGNESIUM HYDROX 2400MG/30ML ORAL SUSPENSION 30 ML CUP PO PRN (10:05)
[2025-05-11] MEDS: IBUPROFEN 600 MG TABLET (FP) PO PRN (10:05)
[2025-05-14 10:20] LABS: MCHC 30.0 g/dl (32.2-35.5); MEAN CELL VOLUME 77.8 fl (79.4-94.8); RDW 16.1 % (12.4-16.4)
[2025-05-14 10:30] LABS: GLUCOSE,RANDOM 74.0 mg/dL (74-106); TOT PROT 6.8 g/dl (6.4-8.2)
[2025-05-14 10:31] LABS: CO2 21.0 mmol/L (21-32)
[2025-05-14 10:33] LABS: ALK PHOS 97.0 U/L (40-150)
[2025-05-14 10:35] LABS: SGOT/AST 31.0 U/L (5-34); SGPT/ALT 18.0 U/L (0-55)
[2025-05-14 10:36] LABS: CREATININE 0.68 mg/dL (0.55-1.3)
[2025-05-14] MEDS: hydrOXYzine PAMOATE 25 MG CAPSULE (FP) PO PRN (12:23)
[2025-05-15] MEDS: MAG HYDROX/AL HYDROX/SIMETH 30 ML UNIT-DOSE CUP PO PRN (14:32)
[2025-05-18] MEDS: BENZOCAINE/MENTHOL (CHLORASEPTIC ) LOZENGE MM PRN (10:33)
[2025-05-19] MEDS: SUVOREXANT 5 MG TABLET PO SCH (21:26)
[2025-05-27] MEDS: IBUPROFEN 400 MG TABLET (FP) PO PRN (07:02)
[2025-05-27 07:08] VITALS: RESP 16
[2025-05-31 07:19] VITALS: BP 115/77; PULSE 70; TEMP 97.5
== END 2025-05-31 14:55 | disposition home or self-care (01) | DRG 895 ==
LOC: YASAS 10:20 → Y3NR 12:14 → Y5N 05-05 11:22
PROVIDERS: ADMIT Psychiatry & Neurology Pain Medicine; ATTEND Psychiatry & Neurology Pain Medicine
PROC: HZ42ZZZ Group Counseling for Substance Abuse Treatment, Cognitive-Behavioral (ICD-10-PCS; principal; 2025-05-04)
DX: F14.20 Cocaine dependence, uncomplicated (principal); F10.10 Alcohol abuse, uncomplicated; F12.20 Cannabis dependence, uncomplicated; F17.210 Nicotine dependence, cigarettes, uncomplicated; Z21 Asymptomatic human immunodeficiency virus [HIV] infection status; D69.6 Thrombocytopenia, unspecified; J44.9 Chronic obstructive pulmonary disease, unspecified
CPT/HCPCS: 36415; 80053; 81003; 83735; 85025; 85027; 86780